=== PATIENT | female | born 1985 | race Caucasian/White ===

== ENCOUNTER 2018-07-24 16:14 | Emergency (ER) | payer SELFPAY ==
[~2018-07-24] VITALS: Ht 157.5 cm; Wt 58.5 kg
[2018-07-24 16:17] VITALS: Ht 157.5 cm; Wt 58.5 kg
[2018-07-24 18:21] VITALS: BP 138/70
== END 2018-07-24 18:21 | disposition home or self-care (01) ==
LOC: ED 16:14
DX: S16.1XXA Strain of muscle, fascia and tendon at neck level, initial encounter (principal); S80.01XA Contusion of right knee, initial encounter; Y04.8XXA Assault by other bodily force, initial encounter; Y93.89 Activity, other specified; Y92.89 Other specified places as the place of occurrence of the external cause; Y99.8 Other external cause status
CPT/HCPCS: Q0092